=== PATIENT | female | born 1990 | race Asian ===

== ENCOUNTER 2024-01-16 17:30 | Emergency (ER) | payer OTHER ==
[~2024-01-16] VITALS: Ht 170.2 cm; Wt 81.6 kg
[2024-01-16 17:45] VITALS: BP_SYST 152; PULSE 98; RESP 18; TEMP 98.3; O2SAT 97
[2024-01-16] MEDS ORDERED: LIDOCAINE 2%, 20 ML MDV INJ ONE (21:30)
[2024-01-16] MEDS ORDERED: ceFAZolin SODIUM 1 GM VIAL ONE (21:37)
[2024-01-16] MEDS: KETOROLAC TROMETHAMINE 30 MG VIAL IVP ONE (21:58)
[2024-01-16] MEDS: CEFAZOLIN 2 GM IVPB PREMIX 50 ML IV ONE (21:59)
[2024-01-16] MEDS ORDERED: CEPH-548 PO (22:21)
[2024-01-16] MEDS ORDERED: IBUP-1969 PO (22:21)
[2024-01-16] MEDS ORDERED: DICL20GE TP (22:21)
[2024-01-16 22:55] VITALS: BP_SYST 117; PULSE 98; RESP 16; TEMP 98; O2SAT 98
== END 2024-01-16 22:54 | disposition home or self-care (01) ==
LOC: SED 17:30
DX: N61.0 Mastitis without abscess (principal); Z88.1 Allergy status to other antibiotic agents
CPT/HCPCS: 99284; 10160; 96374; 96375; 87070; 81025; J0690; J1885; 96365; J2001